=== PATIENT | female | born 1985 | race Caucasian/White ===

== ENCOUNTER 2021-01-14 18:44 | Emergency (ER) | payer SELFPAY ==
[~2021-01-14] VITALS: Ht 154.9 cm; Wt 56.7 kg
[2021-01-14 18:54] VITALS: BP 109/73
--- NOTE | 2021-01-14 19:02 | NUR ---
Patient ambulated to bed 04 with steady/even gait.
[2021-01-14 19:10] VITALS: BP 109/73
--- NOTE | 2021-01-14 19:10 | NUR ---
Dr. Mallory is at bedside for staple removal.
--- NOTE | 2021-01-14 19:10 | NUR ---
see complete assessment
[2021-01-14] MEDS ORDERED: MORPHINE SULFATE 4 MG/ML SYR IM ONE (19:15)
--- NOTE | 2021-01-14 19:20 | NUR ---
pt refused morphine IM for pain management. pt requesting norco instead. Dr. walker made aware.
[2021-01-14] MEDS ORDERED: HYDROcodone/APAP 5/325 MG 1 TAB TAB PO ONE (19:25)
--- NOTE | 2021-01-14 19:30 | NUR ---
pt does not wish to provide urine specimen. dr. walker made aware.
[2021-01-14] MEDS ORDERED: ACET-8386 PO (19:35)
== END 2021-01-14 19:44 | disposition home or self-care (01) ==
LOC: MED 18:44
DX: Z48.00 Encounter for change or removal of nonsurgical wound dressing (principal); F17.210 Nicotine dependence, cigarettes, uncomplicated; Z88.6 Allergy status to analgesic agent
CPT/HCPCS: 99283; J2270